=== PATIENT | female | born 1945 | race Caucasian/White ===

== ENCOUNTER 2017-11-02 15:47 | Inpatient (IN) | payer MEDICARE ==
[2017-11-02] VITALS (8 sets, daily range): BP systolic 111–118; BP diastolic 68–79; BMI 34.0
[~2017-11-02] VITALS: Ht 162.6 cm; Wt 89.8 kg
--- NOTE | ~2017-11-02 | HEMODYNAMI ---
PATIENT:STACEY GUILLEN MEDICAL RECORD: [id number] : 41 LOCATION:[facility] ADMISSION DATE: 11/02/17 Generatedon:11/02/201716:42 Patient name: STACEY GUILLEN Patient #: [id number] SSN: : 1945 Date of study: 11/02/2017 Page: Of Hemodynamic Procedure Report Patient Data Patient Demographics Procedure consent was obtained First Name: STACEY Gender: Female Last Name: WILMER : 1945 [facility] Initial: MARVIN BRIGHT Age: 72 year(s) Patient #: [id number] Race: Unknown Additional ID: [id number] Contact details Address: [address] [address] State: [place] City: [place] Zip code: [address] Admission Admission Data Admission Date: 11/02/2017 Admission Time: 15:47 Procedure Procedure Types Cath Procedure Diagnostic Procedure LHC LHC w/Coronaries PCI Procedure AMI/SVG/CORPORATE SAFETY COORDINATOR PTCA or Stent AMI-BMS/JOLIE Initial Procedure Description Procedure Date Procedure Date: 11/02/2017 Procedure Start Time: 16:12 Procedure End Time: 16:34 Procedure Staff Name Function Zaire Fischer MD Performing Physician Nasir Ramírez RT Monitor Angy Honeycutt RN Nurse Jazmin Dominique RT Scrub Procedure Data Cath Procedure Fluoroscopy Diagnostic fluoroscopy Total fluoroscopy Time: 5.9 time: 5.9 min min Diagnostic fluoroscopy Total fluoroscopy dose: dose: 1710 mGy 1710 mGy Contrast Material Contrast Material Type Amount (ml) Isovue 300 169 Entry Location Entry Primary Successful Side Size Upsize Upsize Entry Closure Succes sful Closure Location (Fr) 1 (Fr) 2 (Fr) Remarks Device Remarks Femoral Right 6 Fr Exoseal artery Short Estimated blood loss: 10 ml Diagnostic catheters Device Type Used For End Catheter Placement MULTIPACK Pigtail 5 Fr Procedure catheter MULTIPACK 3DRC 5Fr Procedure catheter Procedure Complications No complications Procedure Medications Medication Administration Route Dosage Heparin Bolus I.V. 5000 units Integrilin (Bolus I.V. 6.8 ml 2mg/ml) Cardene I.C. 300 mcg Cardene I.C. 300 mcg Nitroglycerin IC/IA I.C. 200 mcg Integrilin Drip I.V. drip 11.7 ml/hr (75mg/100ml) Benadryl I.V. 50 mg Versed I.V. 1 mg Versed I.V. 1 mg Hemodynamics Rest Heart Rate: 81 (bpm) Pressure Samples Time Site Value (mmHg) Purpose Heart Use Rate(bpm) 16:23 AO 116/78(96) Snapshot 101 16:26 AO 83/58(71) Snapshot 79 Snapshots Pre Cath Intra NCS Post Cath Vital Signs Time Heart Resp SPO2 etCO2 NIBP (mmHg) Rhythm Pain Sedation Rate (ipm) (%) (mmHg) Status Level (bpm) 16:09:05 77 16 95 0 118/76(91) NSR 0 (11) 10(A) , No pain 16:13:45 89 15 91 0 112/81(93) NSR 0 (11) 10(A) , No pain 16:18:26 100 13 94 9.7 115/72(90) NSR 0 (11) 9(A) , No pain 16:23:05 90 15 97 24.8 128/84(108) NSR 0 (11) 9(A) , No pain 16:27:41 83 17 98 21 88/59(69) NSR 0 (11) 9(A) , No pain 16:32:18 129 16 97 17.2 96/62(77) NSR 0 (11) 9(A) , No pain 16:38:47 139 19 95 24.7 105/67(86) NSR 0 (11) 10(A) , No pain Medications Time Medication Route Dose Verified Delivered Reason Notes Effectiv eness by by 16:08:26 Benadryl I.V. 50 mg Zaire Sanchezie used for Aaliyah Honeycutt RN procedure 16:12:34 Versed I.V. 1 mg Zaire Travis for Aaliyah Honeycutt RN sedation 16:14:32 Heparin Bolus I.V. 5000 Zaire Sanchezie used for units Aaliyah Honeycutt RN procedure 16:18:39 Integrilin I.V. 6.8 Zaire Sanchezie wasted (Bolus ml Aaliyah Honeycutt RN 3.2 ml 2mg/ml) of vial 16:24:52 Cardene I.C. 300 Zaire Tai Per ravi Fischer MD physician 16:25:48 Cardene I.C. 300 Zaire Tai Per ravi Fischer MD physician 16:26:39 Nitroglycerin I.C. 200 Zaire Tai IC/IA ravi Fischer MD 16:27:35 Versed I.V. 1 mg Zaire Travis for Aaliyah Honeycutt RN sedation 16:29:09 Integrilin I.V. 11.7 Zaire Travis Per Drip drip ml/hr Aaliyah Honeycutt RN physician (75mg/100ml) Procedure Log Time Note 15:45:00 Angy Honeycutt RN sent for patient. Start room use. 15:56:58 Diagnostic Cath status Emergency 15:57:06 Time tracking: Regular hours (M-F 7:00 - 5:00) 15:57:12 Plan of Care:Hemodynamics will remain stable., Cardiac rhythm will remain stable., Comfort level will be maintained., Respiratory function will remain adequate., Patient/ family verbilizes understanding of procedure., Procedure tolerated without complication., Recovers from procedure without complications.. 15:57:16 Patient arrives emergently. 15:57:21 Patient received from ED to CCL 1 Alert and oriented. Tansferred to table in Supine position. 16:08:08 Warm blankets applied, and vanessa hugger turned on for patient comfort. 16:08:08 Correct patient and procedure confirmed by team. 16:08:10 Signed procedure consent form obtained from patient. 16:08:11 ECG and BP/O2 sat monitors applied to patient. 16:08:11 Vital chart was started 16:08:13 Baseline sample Acquired. 16:08:16 Rhythm: w/ ST elevation 16:08:16 Full Disclosure recording started 16:08:21 H&P Date Dictated: 11/02/2017 Emergent; H&P N/A. 16:08:23 Pre-procedure instructions explained to patient. 16:08:24 Pre-op teaching completed and patient verbalized understanding. 16:08:26 Benadryl 50 mg I.V. was administered by Angy Honeycutt RN; used for procedure; 16:08:26 Family unavailable. 16:08:27 Patient NPO since Midnight. 16:08:32 Is the patient allergic to Iodine/contrast media? No. 16:08:36 Is patient on blood thinner?No 16:08:37 Patient diabetic? No. 16:08:40 Previous problem with sedation/anesthesia? No ? 16:08:49 Snore? Yes 16:08:50 Sleep apnea? No 16:08:51 Deviated septum? No 16:08:52 Opens mouth fully? Yes 16:08:52 Sticks out tongue? Yes 16:09:02 Airway obstruction? No ? 16:09:05 Dentures? Yes OUT 16:09:08 Pre procedure: right dorsailis pedis pulse 1+ Palpable, but thready & weak; easily obliterated 16:09:10 Patient pain scale 0/10 ?. 16:09:21 IV patent on arrival in left forearm with 0.9% NaCl at [facility]. 16:09:46 Lab results completed and on chart. 16:09:51 Right groin area was prepped with chlora-prep and draped in sterile fashion 16:09:57 Alarms reviewed by R. N. 16:09:59 Sharps counted by scrub and verified by R.N. 16:10:00 --------ALL STOP TIME OUT------ 16:10:01 Final Timeout: patient, procedure, and site verified with staff and physician. All members of the team are in agreement. 16:10:03 Right groin site verified by team. 16:10:06 Physical assessment completed. ASA score P 3 - A patient with severe systemic disease as per Zaire Fischer MD. 16:10:09 Sedation plan: IV Moderate Sedation Medication:Versed, Fentanyl 16:11:57 Use device set Femoral Dx 16:12:02 ACIST Syringe (87810) opened to sterile field. 16:12:02 Bag Decanter () opened to sterile field. 16:12:03 Medline Cath Pack ([id number]) opened to sterile field. 16:12:04 ACIST Hand Control (43155) opened to sterile field. 16:12:05 ACIST Manifold (87130) opened to sterile field. 16:12:06 Tegaderm 4 x 4 (1626W) opened to sterile field. 16:12:07 DIAGNOSTIC WIRE .035 260cm J wire (618582) opened to sterile field. 16:12:08 DIAGNOSTIC Multipack 5Fr catheter set (BN5038) opened to sterile field. 16:12:28 Use device set TAU PCI 16:12:30 SHEATH Prelude 6Fr 0.035 (XRD-1L-84-035) opened to sterile field. 16:12:33 Procedure started. 16:12:34 Versed 1 mg I.V. was administered by Angy Honeycutt RN; for sedation; 16:12:43 Local anesthetic to right femoral artery with Lidocaine 2% by Zaire Fischer MD.INITIAL ACCESS ONLY 16:12:58 A 6 Fr Short sheath was inserted into the Right Femoral artery 16:13:05 A MULTIPACK Pigtail 5 Fr catheter was advanced over the wire and used for Procedure. 16:13:48 LV angiography performed. 16:13:49 LV gram done using PARNELL 16:13:54 EF : 40 % 16:13:58 Injector settings: Ml/sec: 7, Volume: 15, 16:14:01 Catheter removed. 16:14:07 A MULTIPACK 3DRC 5Fr catheter was advanced over the wire and used for Procedure. 16:14:09 INFLATOR Merit BasixCompak (LG5293) opened to sterile field. 16:14:12 CHOICE PT Extra Support 182cm wire ([id number]) opened to sterile field. 16:14:28 RCA angiography performed. 16:14:29 Catheter removed. 16:14:31 GUIDE 6FR XBLAD 3.5 catheter ([id number]) opened to sterile field. 16:14:32 Heparin Bolus 5000 units I.V. was administered by Angy Honeycutt RN; used for procedure; 16:15:16 6 Fr XBLAD 3.5 guide catheter was inserted over the wire 16:16:14 LCA angiography performed. 16:16:17 Choice PT XS wire advanced. 16:17:37 Wire advanced across lesion. 16:18:19 Inflate balloon Inflation number: 1 A EUPHORA 2.5 x 20 Balloon ([id number]) was prepped and advanced across the Mid LAD, then inflated to 9 SHENG for 0:10 (min:sec). 16:18:35 Multiple inflations made at 9 atms. 16:18:39 Integrilin (Bolus 2mg/ml) 6.8 ml I.V. was administered by Angy Honeycutt RN; ; wasted 3.2 ml of vial 16:18:51 Inflation number: 2 The EUPHORA 2.5 x 20 Balloon ([id number]) was reinflated across the Mid LAD, to 11 SHENG for 0:10 (min:sec). 16:19:16 Balloon removed over the wire. 16:21:02 Place stent Inflation Number: 3 A INTEGRITY RX 2.5 x 26 stent ([id number]) was prepped and advanced across the Mid LAD. The stent was deployed at 11 SHENG for 0:10 (min:sec). 16:22:37 Stent catheter was removed intact over wire. 16:22:55 Place stent Inflation Number: 4 A INTEGRITY RX 2.5 x 26 stent ([id number]) was prepped and advanced across the Mid LAD. The stent was deployed at 15 SHENG for 0:10 (min:sec). 16:24:52 Cardene 300 mcg I.C. was administered by Zaire Fischer MD; Per physician; 16:25:24 Stent catheter was removed intact over wire. 16:25:48 Cardene 300 mcg I.C. was administered by Zaire Fischer MD; Per physician; 16:26:39 Nitroglycerin IC/IA 200 mcg I.C. was administered by Zaire Fischer MD; ; 16:27:35 Versed 1 mg I.V. was administered by Angy Honeycutt RN; for sedation; 16:28:48 Inflate balloon Inflation number: 1 A EUPHORA 2.0 x 20 Balloon ([id number]) was prepped and advanced across the Dist LAD, then inflated to 9 SHENG for 0:10 (min:sec). 16:29:03 Multiple inflations made at 9 atms. 16:29:09 Integrilin Drip (75mg/100ml) 11.7 ml/hr I.V. drip was administered by Angy Honeycutt RN; Per physician; 16:29:58 EXOSEAL 6Fr (EX600) opened to sterile field. 16:30:14 Balloon removed over the wire. 16:30:15 Wire removed. 16:30:16 Guide catheter removed. 16:30:31 Sheath removed intact; hemostasis achieved with Exoseal to the Right Femoral artery. 16:30:34 Procedure ended.(Physican Out) 16:30:45 Fluoroscopy time 05.90 minutes. 16:30:50 Fluoroscopy dose: 1710 mGy 16:30:50 Flurop Dose total: 1710 16:30:54 Contrast amount:Isovue 300 169ml. 16:31:21 Sharps counted by scrub and verified by R.N. 16:31:22 Insertion/operative site no bleeding no hematoma. 16:31:25 Post-op/insertion site Right Femoral artery dressed using a 4 x 4 and Tegaderm. 16:31:27 Post Procedure Pulses reassessed and unchanged 16:31:31 Post-procedure physical assessment completed. ASA score P 3 - A patient with severe systemic disease as per Zaire Fischer MD. 16:32:00 Post procedure rhythm: sinus rhythm 16:32:02 Estimated blood loss: 10 ml 16:32:04 Post procedure instruction explained to patient.Patient verbalizes understanding. 16:32:04 Patient needs reinforcement of post procedure teaching. 16:32:17 Procedure type changed to Cath procedure, Diagnostic procedure, LHC, LHC w/Coronaries, PCI procedure, AMI/SVG/CORPORATE SAFETY COORDINATOR PTCA or Stent, AMI-BMS/JOLIE Initial 16:32:19 Procedure and supply charges have been captured, reviewed, submitted and are correct. 16:32:22 Procedure Complication : No complications 16:34:36 IV Extension Set opened to sterile field. 16:34:50 Vital chart was stopped 16:34:50 See physician's report for complete and final results. 16:34:52 Report given to CVICU. 16:34:56 Patient transfered to CVICU with Bed. 16:34:58 Procedure ended. 16:34:58 Full Disclosure recording stopped 16:42:10 End room use (Document Last) Intervention Summary Intervention Notes Time ActionType Lesion and Equipment Action# Pressure Duration Attributes Used 16:18:19 Inflate Mid LAD EUPHORA 2.5 1 9 00:10 balloon x 20 Balloon ([id number]) 16:18:51 Reinflate Mid LAD EUPHORA 2.5 2 11 00:10 balloon x 20 Balloon ([id number]) 16:21:02 Place stent Mid LAD INTEGRITY RX 3 11 00:10 2.5 x 26 stent ([id number]) 16:22:55 Place stent Mid LAD INTEGRITY RX 4 15 00:10 2.5 x 26 stent ([id number]) 16:28:48 Inflate Dist LAD EUPHORA 2.0 1 9 00:10 balloon x 20 Balloon ([id number]) Device Usage Item Name Manufacture Quantity Catalog Number Hospital Part Current Minimal Lot# / Charge Number Stock Stock Serial# Code ACIST Syringe Acist 1 17225 183624 964657 [id number] 20 (81364) Medical Systems Inc Bag Decanter Microtek 1 2001S 794307 90910 282750 5 () Medical Inc. Medline Cath Cardinal 1 [id number] 066854 17188 190918 5 Pack Health ([id number]) ACIST Hand Acist 1 92144 800440 048621 109236 5 Control (02025) Medical Systems Inc ACIST Manifold Acist 1 36721 675370 789281 800286 5 (59811) Medical Systems Inc Tegaderm 4 x 4 3M 1 1626W 709516 206062 446086 5 (1626W) DIAGNOSTIC WIRE [facility] 1 456667 793936 603694 054996 30 .035 260cm J wire (830800) DIAGNOSTIC Cardinal 1 EY7578 314566 35390 841252 30 Multipack 5Fr Health catheter set (LW8740) SHEATH Prelude Merit 1 GKT-9Y-02-35 809211 5584581 023003 5 6Fr 0.035 Medical (CTQ-9E-22-035) MULTIPACK Cardinal 1 600045 5 Pigtail 5 Fr Health catheter MULTIPACK 3DRC Cardinal 1 651976 5 5Fr catheter Health INFLATOR Merit Merit 1 II6137 248744 084140 971104 15 [facility] [employer]W Technologies (YP7225) CHOICE PT Extra [place] 1 [id number] 311163 251664 564474 5 Support 182cm Scientific wire ([id number]) GUIDE 6FR XBLAD Cardinal 1 19494501 133706 976063 127654 10 3.5 catheter Health ([id number]) EUPHORA 2.5 x Medtronic 1 [id number] 542375 071142 132828 5 [id number] 20 Balloon ([id number]) INTEGRITY RX Medtronic 2 [id number] 718120 409186 566841 5 [id number] 2.5 x 26 stent [id number] ([id number]) EUPHORA 2.0 x Medtronic 1 [id number] 346678 427219 739155 5 [id number] 20 Balloon ([id number]) EXOSEAL 6Fr Cardinal 1 EX600 344551 660586 659381 10 (EX600) Health IV Extension Hospira 1 159180 46054 704619 5 Set Signature Audit [place] Stage Time Signature Unsigned Intra-Procedure 11/02/2017 Nasir Ramírez 4:42:33 PM RT(R) Signatures Monitor : Nasir Ramírez RT Signature : Date : Time : [address] [place] [address]
--- NOTE | ~2017-11-02 | DS ---
PATIENT:STACEY GUILLEN :41 MEDICAL RECORD: [id number] DISCHARGE SUMMARY ADMISSION DATE: 11/02/17 DISCHARGE DATE: 11/04/17 DATE OF SERVICE: 11/04/2017 DIAGNOSES: 1. Acute anterior myocardial infarction. 2. PTCA and stent, LAD. 3. Ischemic cardiomyopathy. HOSPITAL COURSE: Mrs. Guillen presents after staying at home for 24 hours with an acute anterior myocardial infarction, found to have significant disease of the LAD, underwent successful PTCA and stent of the LAD, but ejection fraction was in the 30% range. She remained short of breath after she was able to ambulate around the unit. Her systolic blood pressure was in the 90 range, but did tolerate the addition of Coreg to her medical regimen. She also added aspirin, Plavix, and Pravachol to her medical regimen. No SONDRA inhibitor was instituted secondary to hypotension. She will follow up with [facility] in 2 weeks. TRANSINT:[id number] Voice Confirmation ID: [id number] DOCUMENT ID: [id number] HAKEEM JOSHI MD at 1120 CC: [id number] DICTATION DATE: 11/04/17 1607 SHOVEL LOADER OPERATOR: 11/04/17 1708 DIS IN 11/04/17 [id number] [place] [address]
--- NOTE | ~2017-11-02 | HP ---
PATIENT: STACEY GUILLEN MEDICAL RECORD: [id number] ACCOUNT: [id number] LOCATION:[facility] D.CV04 : 41 ADMISSION DATE: 11/02/17 PCP: No PCP HISTORY AND PHYSICAL EXAMINATION DIAGNOSES: 1. Acute anterolateral myocardial infarction. 2. Hypertension. HISTORY OF PRESENT ILLNESS: Mrs. Guillen has no history of ischemic heart disease. She began having chest pain yesterday. She presented to [facility] after approximately 1 day of chest pain, was found to have an acute anterolateral myocardial infarction. Troponin was only 7; however. She was transferred here for further cardiac care. PHYSICAL EXAMINATION: GENERAL APPEARANCE: Well-nourished, well-developed, appears stated age. Level of distress, comfortable. PSYCHIATRIC: Mental status, alert, normal affect. Orientation, oriented to time, place and person. EYES: Lids and conjunctiva, noninjected. No discharge, no pallor. ENT: Lips, teeth, gums, normal dentition. Oropharynx, no cyanosis, no pallor. NECK: Carotid arteries, bilateral normal upstroke, no bruits, no thrills. JUGULAR VEINS: No jugular venous pressure or distention. CERVICAL LYMPH NODES: Nontender, nonenlarged. THYROID: Not enlarged. Nontender. No nodules. LUNGS: Respiratory effort, unlabored. CHEST: Normal curvature. No thoracic deformity. No chest wall tenderness. Percussion, resonant. Auscultation, clear. No wheezes, no rales, no rhonchi. CARDIOVASCULAR: Precordial exam, nondisplaced. No heaves or pericardial thrills. Rate and rhythm, regular. Heart sounds, normal S1, normal S2. No S3, no gallop, no rub. Systolic murmur, not heard. Diastolic murmur, not heard. EXTREMITIES: No cyanosis, no edema. Peripheral pulses, full and equal in all extremities, except as noted. No bruits appreciated. ABDOMEN: Soft, nondistended. Normal aorta. No bruit. Nontender. No masses. Liver, nontender, no hepatomegaly. Spleen, nontender, no splenomegaly. MUSCULOSKELETAL: No joint tenderness. No joint swelling. No erythema. NEUROLOGICAL: Normal gait, normal strength, normal tone. SKIN: Warm and dry. REVIEW OF SYSTEMS: The patient reports easy bruising but reports no swollen glands. The patient reports no fever, no night sweats, no significant weight gain, no significant weight loss. No significant exercise tolerance. The patient reports no dry eyes, no irritation, no vision change. Patient reports no difficulty hearing and no ear pain. Patient reports no frequent nose bleeds or nose and sinus problems. Patient reports on arm pain on exertion. No shortness of breath while lying down. No history of heart murmur. Patient reports no cough, no wheezing or coughing up blood. Patient reports no abdominal pain, no vomiting. Normal appetite. No diarrhea and not vomiting blood. No nausea and no constipation. Patient reports no incontinence. No difficulty urinating. No hematuria. No increased frequency. Patient reports no muscle aches. No weakness, no arthralgias, no back pain. No swelling of the extremities. Patient reports no abnormal mole, no jaundice, no rashes. Reports no loss of consciousness. No weakness and no numbness. No seizures, dizziness, or headaches. The patient reports no depression, no sleep disturbance, feeling HISTORY AND PHYSICAL [id number] STACEY GUILLEN safe in a relationship and no alcohol abuse. Patient reports on fatigue. Reports no runny nose or sinus pressure. No itching, no hives, and no frequent sneezing. OVERALL IMPRESSION: Continued evolving anterolateral myocardial infarction. At this time, we will proceed with coronary angiography. Further care depends upon the findings of the angiography. TRANSINT:[id number] Voice Confirmation ID: [id number] DOCUMENT ID: [id number] HAKEEM JOSHI MD at 1950 CC: [id number] DICTATION DATE: 11/02/17 155 RIM FIRE PRIMING OPERATOR: 11/02/17 1558 DIS IN 11/04/17 [address] [place] [address]
[2017-11-03] VITALS (25 sets, daily range): BP systolic 86–115; BP diastolic 44–75; Ht 162.6 cm; Wt 89.8 kg
[2017-11-03] MEDS ORDERED: POLY-VI-SOL W/I50 ML PO (05:23)
[2017-11-03] MEDS ORDERED: IODINE PO (05:26)
[2017-11-04] VITALS (17 sets, daily range): BP systolic 91–124; BP diastolic 52–88
== END 2017-11-04 17:38 | disposition home or self-care (01) | DRG 249 ==
LOC: D.CATH 15:47 → D.ER 15:47 → EDSTATUS 16:42 → D.CVICU 17:04 → D.CATH 18:33 → D.CVICU 18:34
PROVIDERS: Internal Medicine Interventional Cardiology
PROC: B2151ZZ Fluoroscopy of Left Heart using Low Osmolar Contrast (ICD-10-PCS; 2017-11-02)
PROC: 4A023N7 Measurement of Cardiac Sampling and Pressure, Left Heart, Percutaneous Approach (ICD-10-PCS; 2017-11-02)
PROC: 02703EZ Dilation of Coronary Artery, One Artery with Two Intraluminal Devices, Percutaneous Approach (ICD-10-PCS; principal; 2017-11-02 15:45)
PROC: B2111ZZ Fluoroscopy of Multiple Coronary Arteries using Low Osmolar Contrast (ICD-10-PCS; 2017-11-02 15:45)
DX: I21.09 ST elevation (STEMI) myocardial infarction involving other coronary artery of anterior wall (principal); I10 Essential (primary) hypertension; I25.5 Ischemic cardiomyopathy

== ENCOUNTER 2017-11-07 09:08 | Inpatient (IN) | payer MEDICARE ==
[~2017-11-07] VITALS: Ht 162.6 cm; Wt 88.9 kg
[2017-11-07] VITALS (9 sets, daily range): BP systolic 92–119; BP diastolic 064–77; BMI 33.7
--- NOTE | ~2017-11-07 | EC ---
PATIENT:STACEY GUILLEN DATE OF SERVICE: 11/07/17 SEX: F MEDICAL RECORD: [id number] DATE OF : 41 LOCATION:D. D.211 AGE OF PATIENT: 72 ADMISSION DATE: 11/07/17 REFERRING PHYSICIAN: INTERPRETING PHYSICIAN: NITO ADAMS MD ECHOCARDIOGRAM REPORT ECHO CHARGES 5 ECHO LIMITED Date: 11/07/17 CLINICAL DIAGNOSIS: CMP ECHOCARDIOGRAPHIC MEASUREMENTS (adult normal given) AC root (d.<3.7cm) cm LV Septum d (<1.2 cm> cm Valve Excursion cm LV Septum (systole) cm Left Atria (s.<4.0cm> cm LVPW d(<1.2cm) cm RV (d.<2.3cm) cm LVPW (sytole) cm LV diastole(<5.6CM) cm MV E-F(>70mm/sec) cm LV systole cm LVOT Diameter cm MV exc.(>10mm) cm Est.ejection fraction (50-75%) % DOPPLER: LVIT cm/sec A cm/sec E cm/sec LA cm/sec RVSP 41.03mmHg LVOT cm/sec AOP1/2T m/s Asc. Ao cm/sec RVOT cm/sec RA cm/sec PA cm/sec AV Gradient Peak mmHg AV Mean mmHg AV Area cm MV Gradient Peak mmHg MV Mean mmHg MV Area cm COMMENTS: Reservations Clerk: Huang FERNANDO Nuclear Engineering Technician: 3 Dr. Romo TAPE# PACS Pericardial Effusion N DATE OF SERVICE: This is a Limited 2D, color flow imaging only. Grossly LVH appears present. LV internal dimensions grossly are normal. There is marked hypokinesis over the anterior wall. Overall, LV function reduced in area of 20%. Aortic valve appears to be tricuspid grossly. Left atrium is grossly normal. Mitral valve shows mild to moderate MR. Right-sided chambers are grossly normal. Mild TR. TRANSINT:[id number] Voice Confirmation ID: [id number] DOCUMENT ID: [id number] ECHOCARDIOGRAM REPORT [id number] STACEY GUILLEN NITO JAMES MD at 0843 CC: [id number] DICTATION DATE: 11/08/17 0911 COMMUNICATION STUDIES PROFESSOR: 11/08/17 1034 DIS IN 11/08/17 [facility] [address] [place] [address]
[~2017-11-07 09:08] MED LIST: IODINE PO; POLY-VI-SOL W/I50 ML PO
[2017-11-07 09:27] LABS: BASOPHILS 0.4 % (0-2); EOSINOPHILS 1.4 % (0-7); HEMATOCRIT 28.6 % (36.0-48.0); HEMOGLOBIN 9.7 g/dL (12-16); IMMATURE GRANULOCYTES 0.8 % (0-5); LYMPHOCYTES 15.3 % (15-50); MCHC 33.9 g/dL (31.0-37.0); MCV 88.5 fL (80.0-100.0); MEAN PLATELET VOLUME 9.7 fL (7.4-10.4); NEUTROPHILS 67.1 % (40-80); PLATELET COUNT 261 10x3/uL (130-400); RBC 3.23 10x6/uL (4.00-5.40); RDW 13.2 % (11.5-14.5); WBC 11.1 10x3/uL (4.8-10.8)
[2017-11-07 09:43] LABS: INR 1.16 (0.85-1.17); PROTIME 14.4 SECONDS (11.6-15.0)
[2017-11-07 09:45] LABS: ALBUMIN 2.7 g/dL (3.4-5.0); ALKALINE PHOSPHATASE 107 U/L (46-116); ALT (SGPT) 56 U/L (10-68); BILIRUBIN - TOTAL 0.96 mg/dL (0.2-1.3); CALC OSMOLALITY 258 mosm/kg (275-300); CARBON DIOXIDE 21.8 mmol/L (21.0-32.0); CHLORIDE - SERUM 94 mmol/L (98-107); CREATININE - SERUM 1.1 mg/dL (0.6-1.3); GLUCOSE 141 mg/dL (74-106); POTASSIUM - SERUM 4.5 mmol/L (3.5-5.1); PROTEIN - SERUM 6.2 g/dL (6.4-8.2); SODIUM 125 mmol/L (136-145); UREA NITROGEN 26 mg/dL (7-18); eGFR NON AFRICAN AMERICAN 51 mL/min (90-120)
[2017-11-07 10:01] LABS: CREATINE KINASE 202 UL (21-215); MAGNESIUM - SERUM 2.2 mg/dL (1.8-2.4); PRO BNP 24699 pg/mL (0-125)
[2017-11-07 10:03] LABS: TROPONIN-I 14.276 ng/mL (0.000-0.060)
[2017-11-07 10:28] LABS: D-DIMER-QUANTITATIVE > 20.00 ug/mLFEU (0.20-0.54)
[2017-11-08 00:07] VITALS: BP 109/73
[2017-11-08 04:00] VITALS: BP 100/66
[2017-11-08 08:31] VITALS: BP 133/66
[2017-11-08 11:13] VITALS: BP 123/62
[2017-11-08 12:52] VITALS: Ht 162.6 cm; Wt 88.9 kg
[2017-11-08 14:53] VITALS: BP 119/65
== END 2017-11-08 15:56 | disposition hospice, inpatient (51) | DRG 281 ==
LOC: D.ER 09:08 → D.M2 10:14 → D.EDHOLD 10:14 → D.M2 10:54
PROVIDERS: Family Medicine
DX: I22.9 Subsequent ST elevation (STEMI) myocardial infarction of unspecified site (principal); N17.9 Acute kidney failure, unspecified; I21.09 ST elevation (STEMI) myocardial infarction involving other coronary artery of anterior wall; Z66 Do not resuscitate; Z51.5 Encounter for palliative care; R06.89 Other abnormalities of breathing; D50.9 Iron deficiency anemia, unspecified

== ENCOUNTER 2017-11-08 16:13 | Inpatient (IN) | payer OTHER ==
[~2017-11-08] VITALS: Ht 162.6 cm; Wt 89.1 kg
[2017-11-08 16:21] VITALS: BP 119/65; Ht 162.6 cm; Wt 89.1 kg
[2017-11-08 22:07] VITALS: BP 93/64
[2017-11-09 06:21] VITALS: BP 103/70
[2017-11-09 07:48] VITALS: BP 103/48
[2017-11-09 21:20] VITALS: BP 93/58
[2017-11-10 05:53] VITALS: BP 95/63
[2017-11-10 07:56] VITALS: BP 97/45
== END 2017-11-10 20:40 | DRG 951 ==
LOC: D.M2 16:13
DX: Z51.5 Encounter for palliative care (principal)